=== PATIENT | male | born 1960 | race Caucasian/White ===

== ENCOUNTER 2020-11-28 23:40 | Observation (INO) | payer BC, OTHER ==
[2020-11-29 00:31] LABS: Protime INR 1.03
[2020-11-29 00:33] LABS: Absolute Lymphocytes (CBC) 2.3 K/uL (0.7-4.9); Basophils % 1.4 % (0-1.3); Hematocrit 41.5 % (39.6-49.0); MPV 7.5 fL (7.6-11.3); RBC Red Blood Cell Count 4.67 M/uL (4.33-5.43)
[2020-11-29 01:00] LABS: ALT/SGPT 29 U/L (12-78); AST/SGOT 23 U/L (15-37); Albumin 3.8 g/dL (3.4-5.0); Alkaline Phosphatase 41 U/L (45-117); BUN Blood Urea Nitrogen 17 mg/dL (7-18); Bicarbonate 27 mmol/L (21-32); Bilirubin Direct < 0.1 mg/dL (0-0.2); Bilirubin Total 0.3 mg/dL (0.2-1.0); Glucose Level 99 mg/dL (74-106); Magnesium 2.3 mg/dL (1.8-2.4); NT PRO-BNP 19 pg/mL (<125); Potassium 3.6 mmol/L (3.5-5.1); Protein, Total 7.6 g/dL (6.4-8.2); Sodium Level 142 mmol/L (136-145); Troponin (Emerg Dept Use Only) < 0.02 ng/mL (0.0-0.045)
[2020-11-29] MEDS ORDERED: ONDANSETRON 4 MG/2 ML VIAL ONE (01:42)
[2020-11-29] MEDS ORDERED: MORPHINE 4 MG/ML SYR ONE ×2 (01:42→04:52)
--- NOTE | 2020-11-29 04:39 | EDPHYS ---
Physician Documentation [facility] Name: Luciano Negron Age: 60 yrs Sex: Male : 1960 Arrival Date: 11/28/2020 Time: 23:41 Bed 4 Private MD: ED Physician Remy Porter HPI: 11/29 01:29 This 60 yrs old Male presents to ER via Ambulatory with complaints of Chest mh7 Pain, Shortness Of Breath. 01:30 The patient or guardian reports chest pain that is located primarily in the substernal mh7 area, epigastric area. Onset: today. The pain does not radiate. 01:30 Associated signs and symptoms: Pertinent positives: abdominal pain, nausea, shortness mh7 of breath, Pertinent negatives: cough, diaphoresis, dizziness, headache, lower extremity pain, lower extremity swelling, lightheadedness, near syncope, palpitations, recent travel, syncope, vomiting. The chest pain is described as a heaviness. Duration: The patient or guardian reports multiple episodes, that are intermittent, that wax and wane. Modifying factors: The symptoms are alleviated by nothing. the symptoms are aggravated by nothing. Severity of pain: At its worst the pain was moderate today, in the emergency department the pain is unchanged. Historical: - Allergies: 11/28 23:59 No Known Allergies; bb - Home Meds: 23:59 citalopram oral [Active]; Lisinopril Oral [Active]; testosterone [Active]; vitamins bb [Active]; - PMHx: 23:59 Hypertension; Anxiety; bb - PSHx: 23:59 Gastric Bypass; rotator cuff; Knee surgery; colonoscopies; bb - Immunization history:: Adult Immunizations unknown. - Social history:: Smoking status: Patient denies any tobacco usage or history of. Patient uses alcohol, occasionally. street drugs, marijuana. ROS: 11/29 01:30 Constitutional: Negative for fever, chills, and weight loss, Eyes: Negative for injury, mh7 pain, redness, and discharge, ENT: Negative for injury, pain, and discharge, Neck: Negative for injury, pain, and swelling, Back: Negative for injury and pain, : Negative for injury, bleeding, discharge, and swelling, MS/Extremity: Negative for injury and deformity, Skin: Negative for injury, rash, and discoloration, Neuro: Negative for headache, weakness, numbness, tingling, and seizure, Psych: Negative for depression, anxiety, suicide ideation, homicidal ideation, and hallucinations, Allergy/Immunology: Negative for hives, rash, and allergies, Endocrine: Negative for neck swelling, polydipsia, polyuria, polyphagia, and marked weight changes, Hematologic/Lymphatic: Negative for swollen nodes, abnormal bleeding, and unusual bruising. Exam: 01:30 Constitutional: This is a well developed, well nourished patient who is awake, alert, mh7 and in no acute distress. Head/Face: Normocephalic, atraumatic. Eyes: Pupils equal round and reactive to light, extra-ocular motions intact. Lids and lashes normal. Conjunctiva and sclera are non-icteric and not injected. Cornea within normal limits. Periorbital areas with no swelling, redness, or edema. Neck: Trachea midline, no thyromegaly or masses palpated, and no cervical lymphadenopathy. Supple, full range of motion without nuchal rigidity, or vertebral point tenderness. No Meningismus. Chest/axilla: Normal chest wall appearance and motion. Nontender with no deformity. No lesions are appreciated. Cardiovascular: Regular rate and rhythm with a normal S1 and S2. No gallops, murmurs, or rubs. Normal PMI, no JVD. No pulse deficits. Respiratory: Lungs have equal breath sounds bilaterally, clear to auscultation and percussion. No rales, rhonchi or wheezes noted. No increased work of breathing, no retractions or nasal flaring. 01:30 Back: No spinal tenderness. No costovertebral tenderness. Full range of motion. Skin: Warm, dry with normal turgor. Normal color with no rashes, no lesions, and no evidence of cellulitis. MS/ Extremity: Pulses equal, no cyanosis. Neurovascular intact. Full, normal range of motion. Neuro: Awake and alert, GCS 15, oriented to person, place, time, and situation. Cranial nerves II-XII grossly intact. Motor strength 5/5 in all extremities. Sensory grossly intact. Cerebellar exam normal. Normal gait. Psych: Awake, alert, with orientation to person, place and time. Behavior, mood, and affect are within normal limits. 01:30 Abdomen/GI: Inspection: abdomen appears normal, Bowel sounds: normal, in all quadrants, Palpation: mild abdominal tenderness, in the epigastric area, mass, is not appreciated, rebound tenderness, is not appreciated, voluntary guarding, is not appreciated, involuntary guarding, is not appreciated, no appreciated organomegaly, Rectal exam: the exam is deferred, because of patient request, Indicators: McBurney's point is not tender, Nichols's sign is negative, Rovsing's sign is negative, Obturator sign is negative, Psoas sign is negative, Liver: no appreciated palpable abnormalities, Hernia: not appreciated. Vital Signs: 11/28 23:55 BP 162 / 84; Pulse 68; Resp 16 S; Temp 98(O); Pulse Ox 97% on R/A; Weight 106.59 kg bb (R); Height 5 ft. 11 in. (180.34 cm) (R); Pain 8/10; 11/29 01:26 BP 151 / 82; Pulse 62; Resp 18; Pulse Ox 98% on R/A; ak2 05:04 BP 110 / 69; Pulse 64; Resp 20; Pulse Ox 95% on R/A; ak2 06:30 BP 116 / 72; Pulse 63; Resp 20; Pulse Ox 97% on R/A; ak2 11/28 23:55 Body Mass Index 32.78 (106.59 kg, 180.34 cm) bb MDM: 04:35 Differential diagnosis: acute myocardial infarction, acute pericarditis, anxiety, mh7 coronary artery disease chest wall pain, congestive heart failure Cholelithiasis costochondritis, gastritis, gastroesophageal reflux disease (GERD), myocarditis, pancreatitis, pericarditis, pleurisy, pneumonia, pneumothorax, pulmonary embolus. HEART Score: History: Highly Suspicious (2), ECG: Normal (0), Age: > 45 and < 65 years (1), Risk Factors: 1 or 2 risk factors (1), [Hypertension] [Active Smoker] Troponin: < or = 1 x Normal Limit (0), Total Score = 4. Data reviewed: vital signs, nurses notes, lab test result(s), cardiac enzymes, CBC, electrolytes, urinalysis, EKG, radiologic studies, CT scan, plain films. Data interpreted: Pulse oximetry: on room air is 98 %. Interpretation: normal. Counseling: I had a detailed discussion with the patient and/or guardian regarding: the historical points, exam findings, and any diagnostic results supporting the discharge/admit diagnosis, the presence of at least one elevated blood pressure reading (>120/80) during this emergency department visit, lab results, radiology results, the need for further work-up and treatment in the hospital. Response to treatment: the patient's symptoms have mildly improved after treatment. 04:38 Patient medically screened. [facility] 11/29 00:07 Order name: Basic Metabolic Panel; Complete Time: 01:10 11/29 00:07 Order name: CBC with Diff; Complete Time: 01:10 11/29 00:07 Order name: LFT's; Complete Time: :11/29 00:07 Order name: Magnesium; Complete Time: :10 11/29 00:07 Order name: NT PRO-BNP; Complete Time: 01:10 11/29 00:07 Order name: PT-INR; Complete Time: 01:10 11/29 00:07 Order name: Troponin (emerg Dept Use Only); Complete Time: 01:10 11/29 00:07 Order name: XRAY Chest (1 view) 11/29 00:34 Order name: Lipase; Complete Time: 01:10 11/29 00:34 Order name: ETOH Level; Complete Time: 01:10 11/29 01:20 Order name: CT Chest For PE Angio [facility] 11/29 01:20 Order name: CT Abd/Pelvis - IV Contrast Only [facility] 11/29 06:12 Order name: SARS-COV-2 RT PCR [facility] 11/29 00:07 Order name: EKG; Complete Time: 00:08 11/29 00:07 Order name: Cardiac monitoring; Complete Time: 04:46 11/29 00:07 Order name: EKG - Nurse/Tech; Complete Time: 00:07 11/29 00:07 Order name: IV Saline Lock; Complete Time: 00:07 11/29 00:07 Order name: Labs collected and sent; Complete Time: 00:07 11/29 00:07 Order name: O2 Per Protocol; Complete Time: 04:46 11/29 00:07 Order name: O2 Sat Monitoring; Complete Time: 04:46 11/29 04:28 Order name: CONS Physician Consult EDMS Administered Medications: 01:25 Drug: morphine 4 mg Route: IVP; Site: right antecubital; ak2 01:25 Drug: Zofran (Ondansetron) 4 mg Route: IVP; Site: right antecubital; ak2 04:38 Drug: morphine 4 mg {Note: RASS 1.} Route: IVP; Site: right antecubital; bb 04:45 Follow up: Response: No adverse reaction; Pain is decreased; RASS: Alert and Calm (0) ak2 04:45 Not Given (pt refused due to scheduled colonoscopy): Aspirin Chewable Tablet 324 mg PO bb once; 81 mg tablets x 4 Disposition: 11/29/20 04:38 Hospitalization ordered by Claritza Cordon for Observation. Preliminary diagnosis are Chest pain, unspecified, Upper abdominal pain, unspecified. - Bed requested for Telemetry/MedSurg (observation). - Status is Observation. jd3 - Condition is Stable. - Problem is new. - Symptoms have improved. Signatures: Dispatcher [employer] EDOR Irma Scherer RN RN mw Lissett Stokes RN RN Baljit Hernandez RN RN jRemy Moreno MD MD 7 Chip Andrews 3 Alphonso Zavala ma2 Corrections: (The following items were deleted from the chart) 05:14 04:31 CORONAVIRUS+ ordered. EDOR EDMS 06:23 04:38 Hospitalization Ordered by Claritza Cordon MD for Observation. Preliminary mw diagnosis is Chest pain, unspecified; Upper abdominal pain, unspecified. Bed requested for Telemetry/MedSurg (observation). Status is Observation. Condition is Stable. Problem is new. Symptoms have improved. mh7 07:13 06:23 11/29/2020 04:38 Hospitalization Ordered by Claritza Cordon MD for Observation. jd3 Preliminary diagnosis is Chest pain, unspecified; Upper abdominal pain, unspecified. Bed requested for Telemetry/MedSurg (observation). Status is Observation. Condition is Stable. Problem is new. Symptoms have improved. mw
--- NOTE | 2020-11-29 04:39 | ER ---
Nurse's Notes [facility] Name: Luciano Negron Age: 60 yrs Sex: Male : 1960 Arrival Date: 11/28/2020 Time: 23:41 Bed 4 Private MD: Diagnosis: Chest pain, unspecified;Upper abdominal pain, unspecified Presentation: 11/28 23:55 Chief complaint: Patient states: he has been having chest pain for about an hour, pain bb does not radiate, and is constant pain is from bottom of sternum to throat. Coronavirus screen: At this time, the client does not indicate any symptoms associated with coronavirus-19. Ebola Screen: No symptoms or risks identified at this time. Initial Sepsis Screen: Does the patient meet any 2 criteria? No. Patient's initial sepsis screen is negative. Does the patient have a suspected source of infection? No. Patient's initial sepsis screen is negative. Risk Assessment: Do you want to hurt yourself or someone else? Patient reports no desire to harm self or others. Onset of symptoms was November 28, 2020. 23:55 Method Of Arrival: Ambulatory bb 23:55 Acuity: PAUL 3 bb Triage Assessment: 11/29 00:26 General: Appears in no apparent distress. Behavior is calm, cooperative. Pain: ak2 Complains of pain in chest. Cardiovascular: No deficits noted. Historical: - Allergies: 11/28 23:59 No Known Allergies; bb - Home Meds: 23:59 citalopram oral [Active]; Lisinopril Oral [Active]; testosterone [Active]; vitamins bb [Active]; - PMHx: 23:59 Hypertension; Anxiety; bb - PSHx: 23:59 Gastric Bypass; rotator cuff; Knee surgery; colonoscopies; bb - Immunization history:: Adult Immunizations unknown. - Social history:: Smoking status: Patient denies any tobacco usage or history of. Patient uses alcohol, occasionally. street drugs, marijuana. Screenin/19 00:25 Abuse screen: Denies threats or abuse. Denies injuries from another. Nutritional ak2 screening: No deficits noted. Tuberculosis screening: No symptoms or risk factors identified. Fall Risk None identified. Assessment: 00:26 Pain: Pain does not radiate. Pain began 1 hour ago. ak2 06:40 General: report called to rn. de la garza2 Vital Signs: 11/28 23:55 BP 162 / 84; Pulse 68; Resp 16 S; Temp 98(O); Pulse Ox 97% on R/A; Weight 106.59 kg bb (R); Height 5 ft. 11 in. (180.34 cm) (R); Pain 8/10; 11/29 01:26 BP 151 / 82; Pulse 62; Resp 18; Pulse Ox 98% on R/A; ak2 05:04 BP 110 / 69; Pulse 64; Resp 20; Pulse Ox 95% on R/A; ak2 06:30 BP 116 / 72; Pulse 63; Resp 20; Pulse Ox 97% on R/A; ak2 11/28 23:55 Body Mass Index 32.78 (106.59 kg, 180.34 cm) bb ED Course: 11/28 23:41 Patient arrived in ED. cf2 23:52 Remy Porter MD is Attending Physician. mh7 23:54 EKG done, by ED staff, reviewed by Remy Porter MD. tt3 23:57 Triage completed. bb 23:59 Arm band placed on Patient placed in an exam room, on a stretcher, on integrated logistics support manager, bb on pulse oximetry. EKG completed in triage. Results shown to MD. Family accompanied patient. 11/29 00:06 Initial lab(s) drawn, by me, sent to lab. Inserted saline lock: 20 gauge in right tt3 antecubital area, using aseptic technique. 00:18 Alphonso Zavala is Primary Nurse. ak2 00:20 XRAY Chest (1 view) In Process Unspecified. EDMS 00:25 No provider procedures requiring assistance completed. ak2 00:25 Patient has correct armband on for positive identification. school bus monitor on. Pulse ak2 ox on. NIBP on. 00:26 Patient maintains SpO2 saturation greater than 95% on room air. ak2 02:00 CT Chest For PE Angio In Process Unspecified. EDMS 02:00 CT Abd/Pelvis - IV Contrast Only In Process Unspecified. EDMS 04:37 Claritza Cordon MD is Hospitalizing Provider. mh7 Administered Medications: 01:25 Drug: morphine 4 mg Route: IVP; Site: right antecubital; ak2 01:25 Drug: Zofran (Ondansetron) 4 mg Route: IVP; Site: right antecubital; ak2 04:38 Drug: morphine 4 mg {Note: RASS 1.} Route: IVP; Site: right antecubital; bb 04:45 Follow up: Response: No adverse reaction; Pain is decreased; RASS: Alert and Calm (0) ak2 04:45 Not Given (pt refused due to scheduled colonoscopy): Aspirin Chewable Tablet 324 mg PO bb once; 81 mg tablets x 4 Outcome: 04:38 Decision to Hospitalize by Provider. [facility] 06:40 Admitted to Tele ak2 06:40 Condition: good 07:13 Patient left the ED. jd3 Signatures: Dispatcher [employer] EDMS Lissett Stokes RN RN Baljit Hernandez RN RN jd3 Godfrey Moraes 2 Remy Porter MD MD [facility] Chip Andrews 3 Alphonso Zavala [facility] Corrections: (The following items were deleted from the chart) 04:44 04:39 Aspirin Chewable Tablet 324 mg PO bb bb
[2020-11-29] MEDS ORDERED: ASPIRIN 81 MG CHEWABLE TABLET ONE (05:01)
--- NOTE | 2020-11-29 05:04 | P.HP ---
Certification for Inpatient Patient admitted to: Observation With expected LOS: <2 Midnights Patient will require the following post-hospital care: None Practitioner: I am a practitioner with admitting privileges, knowledge of patient current condition, hospital course, and medical plan of care. Services: Services provided to patient in accordance with Admission requirements found in Title 42 Section 412.3 of the Code of Federal Regulations Patient History Date of Service: 11/29/20 Primary Care Provider: Susie Reason for admission: ACS r/o History of Present Illness: Mr. Negron is a 60 yo M with HTN who presents with 8/10 epigastric/sternal pain beginning yesterday at 10pm while he was watching TV. He describes the pain as squeezing and initially thought it was indigestion but it was not relieved with omeprazole. Pain prevented him from sleeping. Reports SOB. Denies nausea, vomiting, diaphoresis, lightheadedness. Worse with deep breaths, improved with laying down. He is scheduled to see cardiology in December for palpitations he has been having. Last stress test was ~25 years ago. He quit chewing tobacco in August. Family history of stroke, DM, HTN. Initial workup wnl. - Past Medical/Surgical History Diabetic: No -: HTN -: anxiety -: gastric sleeve -: rotator cuff repair -: knee surgery Psychosocial/ Personal History: - Family History Mother -: Hypertension Father -: Stroke Brother -: Diabetes, Stroke Sister -: Lung disease - Social History Smoking Status: Former smoker (chewed tobacco) Alcohol use: Yes CD- Drugs: No Caffeine use: Yes Place of Residence: Home Review of Systems 10-point ROS is otherwise unremarkable Respiratory: Shortness of Breath Cardiovascular: Chest Pain, Palpitations Physical Examination - Physical Exam General: Alert, In no apparent distress HEENT: Atraumatic, PERRLA, Mucous membr. moist/pink, EOMI, Sclerae nonicteric Neck: Supple, 2+ carotid pulse no bruit, No LAD, Without JVD or thyroid abnormality Respiratory: Clear to auscultation bilaterally, Normal air movement Cardiovascular: Regular rate/rhythm, Normal S1 S2 Gastrointestinal: Normal bowel sounds, No tenderness Musculoskeletal: No tenderness Integumentary: No rashes Neurological: Normal gait, Normal speech, Normal strength at 5/5 x4 extr, Normal tone, Normal affect Lymphatics: No axilla or inguinal lymphadenopathy - Studies Laboratory Data (last 24 hrs) 11/29/20 00:03: Lipase 206 11/29/20 00:03: PT 11.9, INR 1.03 11/29/20 00:03: WBC 7.60, Hgb 13.8, Hct 41.5, Plt Count 252 11/29/20 00:03: Sodium 142, Potassium 3.6, BUN 17, Creatinine 0.81, Glucose 99, Magnesium 2.3, Total Bilirubin 0.3, AST 23, ALT 29, Alkaline Phosphatase 41 L Assessment and Plan - Problems (Diagnosis) (1) HTN (hypertension) Current Visit: Yes Status: Chronic Qualifiers: Hypertension type: essential hypertension Qualified Code(s): I10 - Essential (primary) hypertension (2) Anxiety Current Visit: Yes Status: Chronic (3) Chest pain Current Visit: Yes Status: Acute Qualifiers: Chest pain type: unspecified Qualified Code(s): R07.9 - Chest pain, unspecified - Plan cardiology consulted on telemetry, repeat EKG in AM, trend troponins daily ASA and statin, PRN morphine and NTG lipid panel, thyroid panel pending BP stable, reconcile and continue home medications DVT ppx Discharge Plan: Home Plan to discharge in: 24 Hours - Advance Directives Does patient have a Living Will: No Does patient have a Durable POA for Healthcare: No - Code Status/Comfort Care Code Status Assessed: Yes (full code ) Critical Care: No Time Spent Managing Pts Care (In Minutes): 70
[2020-11-29] MEDS ORDERED: PANTOPRAZOLE 40MG TABLET PO SCH (08:01)
[2020-11-29] MEDS ORDERED: MORPHINE 2 MG/ML SYR IV PRN (08:01)
[2020-11-29] MEDS ORDERED: NITROGLYCERIN 0.4 MG/TAB SL PRN (08:01)
[2020-11-29] MEDS ORDERED: ACETAMINOPHEN 500 MG TAB PO PRN (08:01)
[2020-11-29] MEDS ORDERED: ONDANSETRON 4 MG/2 ML VIAL IV PRN (08:01)
[2020-11-29] MEDS ORDERED: lisinopriL 20 MG TAB PO SCH (09:00)
[2020-11-29] MEDS ORDERED: ASPIRIN EC 81 MG TAB PO SCH (09:00)
[2020-11-29] MEDS ORDERED: ENOXAPARIN 40 MG/0.4 ML SQ SCH (09:00)
[2020-11-29 09:22] LABS: HDL Cholesterol 51 mg/dL (40-60); LDL Cholesterol, Calculated 99 (<130); NT PRO-BNP 35 pg/mL (<125); Troponin I < 0.02 ng/mL (0.0-0.045)
--- NOTE | 2020-11-29 09:44 | EKG ---
Test Date: 2020-11-28 Test Time: 23:49:15 [employer]indergarten Classroom Teacher: TLT MEASUREMENT RESULTS: Intervals: Rate: 68 MN: 182 QRSD: 86 QT: 442 QTc: 469 Willard: P: 13 MN: 182 QRS: -18 T: 20 INTERPRETIVE STATEMENTS: Normal sinus rhythm Normal ECG Compared to ECG 05/28/2002 11:48:00 No significant changes Electronically Signed On 11-29-20 09:43:30 CDT by Omid Munroe
--- NOTE | 2020-11-29 10:58 | RAD REPORT ---
EXAM DESCRIPTION: Madeline Single View11/29/2020 12:21 am CLINICAL HISTORY: Chest pain COMPARISON: none FINDINGS: The lungs appear clear of acute infiltrate. The heart is normal size. Calcified lung granulomas are seen. IMPRESSION: No acute abnormalities displayed
[2020-11-29 11:15] VITALS: BMI 32.9
--- NOTE | 2020-11-29 11:17 | RAD REPORT ---
EXAM DESCRIPTION: US - Abdomen Exam Limited - 11/29/2020 10:51 am CLINICAL HISTORY: Abdominal pain. FINDINGS: A trace amount of pericholecystic fluid. The gallbladder wall is mildly thickened. A galls tone is not seen. Gallbladder is mildly distended The biliary tree is normal caliber. IMPRESSION: Trace amount of pericholecystic fluid. Mild gallbladder wall thickening may indicate ac alculus cholecystitis and should be correlated clinically Mild gallbladder distention
--- NOTE | 2020-11-29 11:19 | CON ---
Reason For Consultation: Atypical chest pain, palpitation, and shortness of breath. History Of Present Illness: Mr. Negron is a 60-year-old white male. Has a history of hypertension, gastroesophageal reflux disease, anxiety. Came in with mid-epigastric sharp, stabbing chest pain wit hout any nausea, vomiting, or diaphoresis. He denied any PND, orthopnea, pedal edema. Has had some palpitations intermittently for which he was going to see Dr. Thomas, but he did not have any palpitat ion with this chest pain. He had some shortness of breath in the past with this palpitation. He den ied any fever or chills or cough. His symptoms did not get better with routine gastroesophageal refl ux medicine including omeprazole and he decided to come to the emergency room. He was slightly hyper tensive, but he had a normal EKG, normal x-ray, and normal blood work. CT scan of the abdomen showed possible gallbladder issue and ultrasound of his abdomen is pending. He has a colonoscopy by Dr. Carmenza hamlin next week. Past Medical History: As stated above. Allergies: NONE. Family History: Strongly positive for heart disease, stroke, and diabetes. Medications: At home include Zestril and Celexa and occasional testosterone. Review of Systems: Negative. Social History: Positive for rare alcohol. He just recently quit chewing tobacco. Physical Examination: Vital Signs: When I saw him; his vital signs were stable. He was afebrile, in no acute distress, si nus rhythm. HEENT: Negative. Neck: Supple with no bruit. Chest: Clear. Cardiac: Revealed a regular rhythm and rate. No murmurs, gallops, or rubs. Abdomen: Benign. Extremities: Revealed no clubbing, cyanosis, or edema. Diagnostic Data: As stated earlier. Impression And Plan: 1.Atypical chest pain, more likely related to gastrointestinal issues such that the gallbladder work up for that is pending. 2.Palpitations. 3.Shortness of breath. 4.Hypertension. 5.Anxiety. 6.Gastroesophageal reflux disease. 7.Strong family history of heart disease. 8.History of tobacco use in the past that he has quit. I am very comfortable Mr. Negron going home after his GI workup. I will clear him for colonoscopy for Tuesday by Dr. Webber and office will call on Tuesday and have him set up for an echocardiogram, event monitor and an MPI and I will see him karlee phoebe. He can go home whenever it is okay with Dr. Cordon. RADHA/LUIS Voice ID: [id number] Report ID: [id number]
[2020-11-29] MEDS ORDERED: PIPER/TAZO/NS 3.375gm 3.375 GM/100 ML BAG IVPB SCH (12:31)
[2020-11-29 13:27] VITALS: O2SAT 98
[2020-11-29 15:23] VITALS: BP 146/67; TEMP 97.5
[2020-11-29] MEDS ORDERED: ATORVASTATIN 20 MG TAB PO SCH (21:00)
--- NOTE | 2020-11-30 21:49 | RAD REPORT ---
EXAM DESCRIPTION: CT - Chest For Pe Angio - 11/29/2020 6:22 am CLINICAL HISTORY: CHEST PAIN COMPARISON: None Available TECHNIQUE: Multiple helical axial tomographic images were obtained of the chest following administra tion of intravenous contrast per angiographic protocol. MIP reformatted images were obtained. This exam was performed according to our departmental dose-optimization program, which includes autom ated exposure control, adjustment of the mA and/or kV according to patient size and/or use of iterati ve reconstruction technique. FINDINGS: Thyroid gland: unremarkable. Axilla: unremarkable. Pulmonary arteries: Pulmonary arteries appear patent. No evidence of pulmonary embolism. Aorta: No evidence of aortic dissection or aneurysm. Mediastinum: Unremarkable. No adenopathy. Heart: Heart is normal in size. Lungs/airways: No consolidation. Airways are patent. There is a 5 mm subpleural nodule in the lingula (series 401, image 71). Two adjacent calcified granulomas in the left lower lobe are present. Pleural spaces: No significant pleural effusion. No pneumothorax. Osseous: Degenerative changes of the spine noted. Soft tissues: Unremarkable. Visualized abdomen: Postoperative changes of the stomach noted. Calcified splenic granulomas are pres ent. IMPRESSION: 1. No acute intrathoracic abnormality. 2. 5 mm subpleural nodule in the lingula. No routine follow-up imaging is recommended. These guidelin es do not apply to immunocompromised patients and patients with cancer. Follow up in patients with si gnificant comorbidities as clinically warranted. For lung cancer screening, adhere to Lung-RADS guide lines. Reference: Radiology. 2017; 284(1):228-43. Electronically signed by: Dre Stanley MD 11/29/2020 2:48 AM CDT Due to temporary technical issues with the PACS/Fluency reporting system, reports are being signed by the in house radiologists without review as a courtesy to insure prompt reporting. The interpreting radiologist is fully responsible for the content of the report.
--- NOTE | 2020-11-30 21:52 | RAD REPORT ---
EXAM DESCRIPTION: CT - Abdomen Pelvis W Contrast - 11/29/2020 6:22 am CLINICAL HISTORY: ABD PAIN TECHNIQUE: Contiguous axial images obtained through the abdomen and pelvis following the uneventful administration of IV contrast. Coronal and sagittal reformatted images were provided. This exam was performed according to our departmental dose-optimization program, which includes autom ated exposure control, adjustment of the mA and/or kV according to patient size and/or use of iterati ve reconstruction technique. COMPARISON: None available for comparison. FINDINGS: Lung bases: Left lower lobe calcified granuloma. Calcified left hilar lymph nodes. Liver: Unremarkable Gallbladder and biliary system: No calcified gallstones or significant gallbladder wall thickening. Q uestionable trace pericholecystic fluid and minimal infiltration of the fat. Pancreas: Unremarkable Spleen: Splenic parenchymal calcifications compatible with remote granulomatous organism exposure. Adrenals: Unremarkable Kidneys: Normal renal cortical enhancement. 1.3 cm cyst at the mid pole on the right. No calculi. No hydronephrosis. Bowel: Postsurgical changes of the stomach. Intramural fat within the right abdominal small bowel loo ps which can be seen in the setting of prior inflammation. Colonic diverticula without adjacent infla mmatory change. No obstruction. No appreciable mucosal thickening. Appendix: Normal caliber appendix. No findings to suggest acute appendicitis. Urinary bladder: Mild circumferential urinary bladder wall thickening. Reproductive: Unremarkable as visualized Lymph nodes: No pathologically enlarged lymph nodes. Peritoneum: No focal fluid collection. No free air. Vessels: Mild to moderate atherosclerotic disease. No abdominal aortic aneurysm. Abdominal wall: Small fat-containing umbilical and bilateral inguinal hernias. Bones: Multilevel spondylosis. Remote anterior compression deformities at T9, T10 and T11. No acute f racture. IMPRESSION: 1. Questionable trace pericholecystic fluid and minimal infiltration of the fat. No ca lcified gallstones or significant gallbladder wall thickening. Please correlate clinically for acute cholecystitis. 2. Mild circumferential urinary bladder wall thickening. Please correlate clinically for cystitis. 3. Other findings as above. Electronically signed by: Kev Stallings MD 11/29/2020 2:20 AM CDT Due to temporary technical issues with the PACS/Fluency reporting system, reports are being signed by the in house radiologists without review as a courtesy to insure prompt reporting. The interpreting radiologist is fully responsible for the content of the report.
== END 2020-11-29 15:59 | disposition home or self-care (01) ==
LOC: ER 23:40 → 2ND 11-29 04:27 → INTOOBSV 11-29 04:27
PROVIDERS: ADMIT Hospitalist; ATTEND Hospitalist
DX: R07.89 Other chest pain (principal); R00.2 Palpitations; R06.02 Shortness of breath; Z87.891 Personal history of nicotine dependence; Z20.822 Contact with and (suspected) exposure to COVID-19; I10 Essential (primary) hypertension; F41.9 Anxiety disorder, unspecified; K21.9 Gastro-esophageal reflux disease without esophagitis; Z82.49 Family history of ischemic heart disease and other diseases of the circulatory system; Z98.84 Bariatric surgery status
CPT/HCPCS: 93005; 85025; 80048; 36415; 80320; 83735; 85610; 80061; 80076; 84443; 84484 ×3; 84439; 83690; 83880 ×2; 71275; 74177; 71045; 76705; 94760; U0003; Q9967; J2543; J2405; G0378 ×2; 96374; 96375; 99285

== ENCOUNTER 2020-12-08 07:54 | Day surgery (SDC) | payer OTHER ==
[2020-12-05 14:10] LABS: Absolute Lymphocytes (CBC) 1.6 K/uL (0.7-4.9); Basophils % 0.9 % (0-1.3); Hematocrit 39.2 % (39.6-49.0); Lymphocytes % 18.3 % (15.3-44.8); MPV 7.3 fL (7.6-11.3); RBC Red Blood Cell Count 4.47 M/uL (4.33-5.43)
[2020-12-05 14:44] LABS: Albumin 3.9 g/dL (3.4-5.0); Bilirubin Direct 0.1 mg/dL (0-0.2); Bilirubin Total 0.4 mg/dL (0.2-1.0); Potassium 4.3 mmol/L (3.5-5.1); Protein, Total 8.2 g/dL (6.4-8.2)
[2020-12-08] MEDS ORDERED: Ringers Lactate 1,000 ML IV ONE ×2 (08:28)
[2020-12-08] MEDS ORDERED: CEFOXITIN/SWI 1gm 1 GM/10 ML SYR ONE ×2 (08:28→08:56)
[2020-12-08] MEDS ORDERED: MIDAZOLAM HCL 2 MG/2 ML INJ ONE (09:18)
[2020-12-08] MEDS ORDERED: ROCURONIUM 50 MG/5 ML VIAL IV ONE (09:18)
[2020-12-08] MEDS ORDERED: propofoL 200 MG/20 ML VIAL IV ONE (09:18)
[2020-12-08] MEDS ORDERED: FENTANYL CITR 100 MCG/2 ML ONE (09:18)
[2020-12-08] MEDS ORDERED: LIDOCAINE 2% MPF 5 ML VIAL ONE (09:18)
[2020-12-08] MEDS ORDERED: ONDANSETRON 4 MG/2 ML VIAL ONE (09:19)
[2020-12-08] MEDS ORDERED: dexAMETHasone 10 MG/ML VIAL ONE (09:19)
[2020-12-08] MEDS ORDERED: GLYCOPYRROLATE 0.2 MG/ML SYR ONE (09:58)
[2020-12-08] MEDS ORDERED: EPHEDRINE SULF 50 MG/ML VIAL ONE (10:06)
[2020-12-08] MEDS ORDERED: KETOROLAC 30 MG/ML INJ ONE (10:51)
--- NOTE | 2020-12-08 10:55 | P.BOP ---
Preoperative diagnosis: Acute cholecystitis, Symptomatic cholelithiasis Postoperative diagnosis: same plus umbilical hernia Primary procedure: 1. Laparoscopic cholecystectomy Secondary procedure: 2. Open repair of umbilical hernia Nitriles Lab Technician: Joan Ponce) Estimated blood loss: <20cc Specimen: GB, hernia sac Findings: acute inflammed GB. hernia Anesthesia: General Complications: None Drain(s): AURY drain Transferred to: Recovery Room Condition: Good
[2020-12-08] MEDS ORDERED: MORPHINE 10 MG/ML VIAL ONE (11:03)
[2020-12-08 12:23] VITALS: BP 119/63; TEMP 97.3; O2SAT 97
[2020-12-08] MEDS ORDERED: CODEINE 30MG/APAP 300MG TAB ONE (12:35)
--- NOTE | 2020-12-08 22:24 | OP ---
Date of Procedure: 12/08/2020 Surgeon: Alonso Patiño MD Digital Analyst: MARIELLA Huffman. Preoperative Diagnoses: Acute cholecystitis, symptomatic cholelithiasis intractable, and recurrent r ight upper quadrant abdominal pain. Postoperative Diagnoses: Acute cholecystitis, symptomatic cholelithiasis intractable, and recurrent right upper quadrant abdominal pain plus umbilical hernia. Procedures: 1.Laparoscopic cholecystectomy. 2.Open repair of umbilical hernia. Estimated Blood Loss: Less than 20 cc. Specimen: Gallbladder and hernia sac. Finding: Acute inflamed gallbladder and also umbilical hernia. Anesthesia: General plus local. Drains: AURY #10. Indications: This is the case of a 60-year-old patient who comes to us with abdominal pain, diagnose d with acute cholecystitis. The patient's pain is recurrent. Shows gallbladder wall inflammation. The patient was fully explained the benefits, alternatives, and risks of laparoscopic possible open c holecystectomy, which include, but not limited to infection, bleeding, damage to adjacent structures, anesthesia complication, cholelithiasis, bile leak, pancreatitis, VA and even . He also unders tands this may not relieve his symptoms. He might need more than one surgical intervention. He unde rstood, signed a consent. Procedure In Detail: The patient was brought to the operating room, placed in supine position. Anes thesia was done without complication. Abdominal area was prepped and draped in usual sterile fashion . Marcaine 0.5% was injected for local anesthetic, followed by sharp incision of the skin in the inf raumbilical region. Once we did that, we noticed the patient to have an umbilical hernia with incarc erated omentum on it, so we proceeded to carefully removed the hernia sac, opened the hernia sac rohini ving some adhesions up to the hernia sac and then reduced the omentum back since it is viable and lyubov e. No bleeding. Hernia sac was removed. At that moment, I proceeded to place Vicryl #1 inside of t he fascia. Dinah trocar was carefully introduced. No bleeding was obtained. I placed 3 more troca rs 5 mm each one of them, in epigastric area, 2 in the right upper quadrant under direct visualizatio n. This allowed me to put a grasper in the fundus of the gallbladder, another grasper in the infundi bulum. This gallbladder was distended and inflamed. We could also see some stones through the gallb ladder wall and feel it. At that moment once we retracted gallbladder in the inferolateral fashion, we proceeded to triangle of Calot to obtain critical view. Cystic duct and cystic artery were clearl y isolated, freed circumferentially, and a connection between those and the gallbladder were clearly identified. I proceeded to ligate those by using at least 3 clips proximally, 1 clip distally, ligat ion in middle. Same was done with the cystic artery. No bile leak. No bleeding. The gallbladder w as removed from liver using Bovie cauterizer and removed from abdominal cavity using EndoCatch throug h umbilical incision. The area was inspected once again. No bile leak. No bleeding, but there was an infection in that area. I felt better leaving a AURY drain in that region and exiting through 1 of the trocar site and that is what we did and secured in place with 3-0 nylon. Once again, we checked the area for hemostasis. No bile leak. No bleeding. At that moment, I proceeded to remove the troc ars under direct vision, deflated pneumoperitoneum. Closed the fascia with #1 Vicryl. Irrigated sub cutaneous tissue, closed that with 3-0 chromic and skin in a subcuticular fashion. Sponge counts and instrument counts were correct. The patient tolerated the procedure well. Also I have to mention t hat on the way out, we closed the umbilical hernia with #1 Vicryl. The patient was sent to Recovery in stable condition. Discharge Summary: Diagnoses: Acute cholecystitis, symptomatic cholelithiasis, umbilical hernia. Procedure: Laparoscopic cholecystectomy and open repair of umbilical hernia. Disposition: Home. Activity: As tolerated. No heavy lifting. Followup: In my office in one week. Call for appointment at #[phone]. Keep area dry for 48 hours, then may shower. Keep Steri-Strip intact. Medications: Include Tylenol No. 3 q.4 hours p.r.n. pain, Bactrim DS p.o. b.i.d. EDY/LUIS Voice ID: [id number] Report ID: [id number]
== END 2020-12-08 12:57 | disposition home or self-care (01) ==
LOC: OR 07:54
PROVIDERS: ATTEND Surgery
PROC: 0FT44ZZ Resection of Gallbladder, Percutaneous Endoscopic Approach (ICD-10-PCS; principal; 2020-12-08 09:30)
PROC: 0WQF0ZZ Repair Abdominal Wall, Open Approach (ICD-10-PCS; 2020-12-08 09:30)
DX: K80.12 Calculus of gallbladder with acute and chronic cholecystitis without obstruction (principal); K42.9 Umbilical hernia without obstruction or gangrene; I10 Essential (primary) hypertension; F41.9 Anxiety disorder, unspecified; R10.9 Unspecified abdominal pain
CPT/HCPCS: 85025; 80048; 36415; 82150; 80076; 88302; 88304; 83690; 47562; 49585; J2704; J2250; J3010; J1100; J7120 ×2; J2405

== ENCOUNTER 2025-04-04 09:56 | Emergency (ER) | payer OTHER ==
[2025-04-04] MEDS ORDERED: FOLIC ACID 5 MG/ML VIAL ONE (10:18)
[2025-04-04] MEDS ORDERED: NA CHLORIDE 0.9% 1,000 ML ONE (10:19)
[2025-04-04 10:25] LABS: Absolute Lymphocytes (CBC) 1.5 K/uL (0.7-4.9); Hematocrit 47.0 % (39.6-49.0); Hemoglobin 15.8 g/dL (13.6-17.9); MCH 30.0 pg (27.0-35.0); MCHC 33.6 g/dL (32.0-36.0); MCV 89.4 fL (80-100); MPV 7.1 fL (7.6-11.3); Nucleated RBC Absolute Count 0.0 (0-0); Nucleated Red Blood Cells % 0.0 % (0-0); RBC Red Blood Cell Count 5.26 M/uL (4.33-5.43); White Blood Count 11.10 thou/uL (4.3-10.9)
--- NOTE | 2025-04-04 10:31 | RAD REPORT ---
EXAM: CT brain without contrast HISTORY: Visual disturbances;TIA COMPARISON: None TECHNIQUE: Multiple contiguous axial images were obtained and a CT of the brain without contrast. Sag ittal and coronal reformats were performed. One or more of the following dose reduction techniques were used: Automated exposure control, adjust ment of the mA and/or kV according to patient size, and/or iterative reconstruction. FINDINGS: No evidence of hydrocephalus, intracranial hemorrhage, or extra-axial fluid collection. The brain is normal in morphology. No evidence of midline shift or areas of brain edema. The calvarium is intact. Mild polypoid mucosal thickening noted in the paranasal sinuses. IMPRESSION: No evidence of acute intracranial abnormality.
--- NOTE | 2025-04-04 10:33 | RAD REPORT ---
EXAMINATION: CTA HEAD CLINICAL INDICATION: TIA TECHNIQUE: Axial CT images were obtained through the head after intravenous contrast utilizing angiog raphic protocol with 3D post-processing (maximum intensity projection images, volume rendered images and/or shaded surface rendered images). One or more of the following dose reduction technique s were used: Automated exposure control, adjustment of the mA and/or kV according to patient size, and/or iterative reconstruction. Unless otherwise specified, incidental findings do not require dedic ated imaging follow-up. COMPARISON: No prior exam. FINDINGS: ICA: The petrous, cavernous, and supraclinoid segments of the bilateral internal carotid arteries are normal. The ophthalmic artery origins are visualized and normal. The posterior communicating arteries are patent. RALPH: Anterior cerebral arteries are normal bilaterally. The anterior communicating artery is patent. MCA: Middle cerebral arteries are normal bilaterally. COATER SLATE: Posterior cerebral arteries are normal bilaterally. origin right posterior communicating a rtery, normal variant anatomy. Vertebrobasilar: The vertebral arteries are patent. The basilar artery is normal in appearance. 3D images confirm these findings. IMPRESSION: No significant flow abnormality is identified.
--- NOTE | 2025-04-04 10:37 | RAD REPORT ---
EXAMINATION: CTA NECK CLINICAL INDICATION: PAIN TECHNIQUE: Axial CT images were obtained from the aortic arch to the skull base after intravenous con trast utilizing angiographic protocol with 3D post-processing (maximum intensity projection images, volume rendered images and/or shaded surface rendered images). One or more of the following dose redu ction techniques were used: Automated exposure control, adjustment of the mA and/or kV according to patient size, and/or iterative reconstruction. Unless otherwise specified, incidental findings do not require dedicated imaging follow-up. COMPARISON: No prior exam. FINDINGS: AORTA: The imaged aortic arch is normal. CCA: The common carotid arteries are patent and normal in caliber. ICA/ECA: Moderate hard plaquing is seen involving both carotid bulbs, slightly greater on the left. S tenosis on the right is less than 50%. Stenosis on the left is approximately 40-50%. VERTEBRAL: The cervical vertebral arteries are patent. The vertebral arteries are codominant. SOFT TISSUE: No significant neck soft tissue abnormalities. The visualized lung apices are clear. 3D images confirm these findings. IMPRESSION: Moderate hard plaque seen in both carotid bulbs, greater on the left, resulting in [id number] s tenosis as detailed. NASCET criteria used. Mild 0-49% stenosis Moderate 50-69% stenosis Severe 70-99% stenosis
[2025-04-04 10:47] LABS: PT Prothrombin Time 13.4 SECONDS (10-13.0); Protime INR 1.19
[2025-04-04 10:52] LABS: ALT/SGPT 41 U/L (16-61); AST/SGOT 35 U/L (15-37); Albumin 3.9 g/dL (3.4-5.0); Albumin/Globulin Ratio 0.9 (1.1-1.8); Alkaline Phosphatase 48 U/L (45-117); Anion Gap 11.8 mEq/L (5.0-15.0); BUN Blood Urea Nitrogen 16 mg/dL (7-18); Bilirubin Indirect, Calculated 0.6 mg/dL (0.2-0.8); C-Reactive Protein < 2.90 mg/L (<3.00); Globulin 4.3 g/dL (2.3-3.5); Glucose Level 134 mg/dL (74-106); HDL Cholesterol 54 mg/dL (40-60); LDL Cholesterol, Calculated 41 mg/dL (<130); LDL Cholesterol,Calc NonReport 41; Magnesium 1.5 mg/dL (1.6-2.4); NT PRO-BNP 8 pg/mL (<125); Potassium 3.8 mEq/L (3.5-5.1); Troponin High Sensitivity 4.5 pg/mL (<58.9)
--- NOTE | 2025-04-04 10:59 | RAD REPORT ---
EXAMINATION: MRI BRAIN WITHOUT CONTRAST CLINICAL INDICATION: TIA TECHNIQUE: Multiplanar multisequence MR images of the brain were obtained without intravenous contras t. Unless otherwise specified, incidental findings do not require dedicated imaging follow-up. COMPARISON: No prior exam. FINDINGS: INTRACRANIAL: Diffusion-weighted images show no acute or early subacute infarction. No abnormal brain parenchymal signal. The ventricles are normal in size and morphology. No augmented susceptibility. There is no mass effect or midline shift. No abnormal extraaxial fluid collection. VASCULATURE: Normal signal voids in the larger intracranial arteries and dural venous sinuses. SINUSES: Moderate multifocal paranasal sinus opacification. BONE: The marrow signal pattern is within normal limits. IMPRESSION: Negative for acute CVA or other acute intracranial finding. Moderate paranasal sinus opacification.
--- NOTE | 2025-04-04 11:16 | RAD REPORT ---
EXAMINATION: ONE VIEW CHEST XR CLINICAL INDICATION: COUGH TECHNIQUE: Frontal chest projection is submitted. Examination is limited by patient positioning and t echnique. COMPARISON: 11/29/2020 FINDINGS: The lungs are well inflated and clear. The heart is normal in size. No displaced fractures identified . IMPRESSION: No acute intrathoracic abnormalities.
[2025-04-04] MEDS ORDERED: ASPIRIN 81 MG CHEWABLE TABLET ONE (11:43)
[2025-04-04] MEDS ORDERED: Magnesium Sulfate 2gm IVPB 2 G/50 ML BAG IV ONE (11:43)
--- NOTE | 2025-04-04 12:32 | ER ---
Nurse's Notes [facility] Name: Luciano Negron Age: 65 yrs Sex: Male : 1960 Arrival Date: 04/04/2025 Time: 09:56 Bed 4 Private MD: Diagnosis: Syncope Near;Occlusion and stenosis of unspecified carotid artery-LESS THAN 50%;Essential (primary) hypertension;Hypomagnesemia Presentation: 04/04 10:13 Chief complaint: Patient states: Two days ago patient's vision changed where everything me1 he saw was green, then everything was "bright white" and he lost complete consciousness. Friends reports it lasted 4-5 minutes. Coronavirus screen: Vaccine status: Patient reports receiving the 2nd dose of the covid vaccine. Ebola Screen: No symptoms or risks identified at this time. Initial Sepsis Screen: Does the patient meet any 2 criteria? No. Patient's initial sepsis screen is negative. Does the patient have a suspected source of infection? No. Patient's initial sepsis screen is negative. Risk Assessment: Do you want to hurt yourself or someone else? Patient reports no desire to harm self or others. Onset of symptoms was April 02, 2025. 10:13 Method Of Arrival: Ambulatory me1 10:13 Acuity: PAUL 2 me1 Historical: - Allergies: 10:17 No Known Allergies; me1 - PMHx: 10:17 Anxiety; Hypertension; erectile dysfunction (Unknown); me1 - PSHx: 10:17 Operative procedure on knee; Cholecystectomy; rotator cuff surgery bilaterally; me1 - Immunization history:: Adult Immunizations up to date. - Infectious Disease History:: Denies. - Social history:: Smoking status: Patient reports use of chewing tobacco. - Family history:: not pertinent. Screenin:00 [facility] ED Fall Risk Assessment (Adult) History of falling in the last 3 months, hb including since admission No falls in past 3 months (0 pts) Confusion or Disorientation No (0 pts) Intoxicated or Sedated No (0 pts) Impaired Gait No (0 pts) Mobility Assist Device Used No (0 pt) Altered Elimination No (0 pt) Score/Fall Risk Level 0 - 2 = Low Risk Oriented to surroundings, Maintained a safe environment, Educated pt \\T\\ family on fall prevention, incl call for assistance when getting out of bed. Abuse screen: Denies threats or abuse. Denies injuries from another. Nutritional screening: No deficits noted. Tuberculosis screening: No symptoms or risk factors identified. Assessment: 11:00 General: Appears in no apparent distress. Behavior is calm, cooperative. hb 11:00 Pain: Denies pain. Neuro: Level of Consciousness is awake, alert, obeys commands, hb Oriented to person, place, time, situation. Cardiovascular: Patient's skin is warm and dry. Respiratory: Respiratory effort is even, unlabored, Respiratory pattern is regular, symmetrical. GI: No signs and/or symptoms were reported involving the gastrointestinal system. : No signs and/or symptoms were reported regarding the genitourinary system. EENT: No signs and/or symptoms were reported regarding the EENT system. Derm: Skin is pink, warm \\T\\ dry. Musculoskeletal: No signs and/or symptoms reported regarding the musculoskeletal system. 12:00 Reassessment: Patient appears in no apparent distress at this time. Patient and/or hb family updated on plan of care and expected duration. Pain level reassessed. Patient is alert, oriented x 3, equal unlabored respirations, skin warm/dry/pink. 12:15 Reassessment: Discharge pending completion of IV medication. hb Vital Signs: 10:13 BP 168 / 103; Pulse 71; Resp 18; Temp 98.3; Pulse Ox 99% ; Weight 98.88 kg; Height 6 me1 ft. 0 in. ; 12:10 BP 156 / 86; Pulse 68; Resp 16; Pulse Ox 99% on R/A; hb 10:13 Body Mass Index 29.57 (98.88 kg, 182.88 cm) mn1 ED Course: 10:01 Patient arrived in ED. cj3 10:01 Stan Sun MD is Attending Physician. evan 10:17 Triage completed. me1 10:17 Arm band placed on Patient placed in an exam room. me1 10:22 CT Head Brain wo Cont In Process Unspecified. EDMS 10:22 CT Head Angio In Process Unspecified. EDMS 10:22 CT Neck Angio In Process Unspecified. EDMS 10:53 Brain Wo Cont In Process Unspecified. EDMS 11:00 Patient has correct armband on for positive identification. Bed in low position. Call hb light in reach. Provided Education on: .. 11:11 XRAY Chest (1 view) In Process Unspecified. EDMS 11:41 Emily Li, RN is Primary Nurse. hb 12:30 Demetrius Jensen MD is Referral Physician. [facility] 12:32 Esteban Chow MD is Referral Physician. [facility] 12:32 Agustin Szymanski MD is Referral Physician. evan 12:58 No provider procedures requiring assistance completed. IV discontinued, intact, hb bleeding controlled, No redness/swelling at site. Pressure dressing applied. Administered Medications: 11:20 Drug: foLIC Acid IVPB 1 mg IVPB once Route: IVPB; Site: right antecubital; hb 11:20 Drug: NS 0.9% IV 1000 ml IV at 1000 ml once; to be given as a bolus over 60 minutes hb Route: IV; Rate: 1000 ml; Site: right antecubital; 12:01 Drug: Magnesium Sulfate IVPB 2 grams IVPB once over 2 hrs Route: IVPB; Infused Over: 2 hb hrs; Site: right antecubital; 12:01 Drug: Aspirin PO Chewable Tablet 324 mg PO once; 81 mg tablets x 4 Route: PO; hb Medication: 11:56 VIS not applicable for this client. hb Outcome: 12:31 Discharge ordered by MD. evan 12:58 Discharged to home ambulatory, hb 12:58 Condition: stable 12:58 Discharge instructions given to patient, Instructed on discharge instructions, follow up and referral plans. medication usage, Demonstrated understanding of instructions, follow-up care, medications, 12:58 Patient left the ED. hb Signatures: Dispatcher [employer] EDIL Stan Sun MD MD cha Baxter, Heather, RN RN Katie Last RN RN me1 Dianna Meredith cj3
--- NOTE | 2025-04-04 12:32 | EDPHYS ---
Physician Documentation [facility] Name: Luciano Negron Age: 65 yrs Sex: Male : 1960 Arrival Date: 04/04/2025 Time: 09:56 Bed 4 Private MD: DAFNE Physician Stan Sun HPI: 04/04 12:27 This 65 yrs old Male presents to ER via Ambulatory with complaints of SENT evan OVER BY MIKKISTACIANI. 12:28 The patient has experienced near-syncope, almost passed out, felt dizzy, felt faint. evan Onset: The symptoms/episode began/occurred 2 day(s) ago. Duration: This was a single episode, that lasted 20 second(s). The patient presents with dizziness, feeling faint, generalized weakness. Modifying factors: The symptoms are alleviated by lying down, the symptoms are aggravated by movement of head, standing up. Associated signs and symptoms: The patient has no apparent associated signs or symptoms. Severity of symptoms: At their worst the symptoms were mild moderate in the emergency department the symptoms are unchanged. Associated injury: The patient did not suffer any apparent associated injury. Historical: - Allergies: 10:17 No Known Allergies; me1 - PMHx: 10:17 Anxiety; Hypertension; erectile dysfunction (Unknown); me1 - PSHx: 10:17 Operative procedure on knee; Cholecystectomy; rotator cuff surgery bilaterally; me1 - Immunization history:: Adult Immunizations up to date. - Infectious Disease History:: Denies. - Social history:: Smoking status: Patient reports use of chewing tobacco. - Family history:: not pertinent. ROS: 12:28 Constitutional: Negative for fever, chills, and weight loss, Eyes: Negative for injury, evan pain, redness, and discharge, ENT: Negative for injury, pain, and discharge, Neck: Negative for injury, pain, and swelling, Cardiovascular: Negative for chest pain, palpitations, and edema, Respiratory: Negative for shortness of breath, cough, wheezing, and pleuritic chest pain, Abdomen/GI: Negative for abdominal pain, nausea, vomiting, diarrhea, and constipation, Back: Negative for injury and pain, : Negative for injury, bleeding, discharge, and swelling, MS/Extremity: Negative for injury and deformity, Skin: Negative for injury, rash, and discoloration, Psych: Negative for depression, anxiety, suicide ideation, homicidal ideation, and hallucinations, Allergy/Immunology: Negative for hives, rash, and allergies, Endocrine: Negative for neck swelling, polydipsia, polyuria, polyphagia, and marked weight changes, Hematologic/Lymphatic: Negative for swollen nodes, abnormal bleeding, and unusual bruising, 12:28 Neuro: Positive for near syncope, weakness, Exam: 12:28 Constitutional: This is a well developed, well nourished patient who is awake, alert, evan and in no acute distress. Head/Face: Normocephalic, atraumatic. Eyes: Pupils equal round and reactive to light, extra-ocular motions intact. Lids and lashes normal. Conjunctiva and sclera are non-icteric and not injected. Cornea within normal limits. Periorbital areas with no swelling, redness, or edema. ENT: Nares patent. No nasal discharge, no septal abnormalities noted. Tympanic membranes are normal and external auditory canals are clear. Oropharynx with no redness, swelling, or masses, exudates, or evidence of obstruction, uvula midline. Mucous membranes moist. Neck: Trachea midline, no thyromegaly or masses palpated, and no cervical lymphadenopathy. Supple, full range of motion without nuchal rigidity, or vertebral point tenderness. No Meningismus. Chest/axilla: Normal chest wall appearance and motion. Nontender with no deformity. No lesions are appreciated. Cardiovascular: Regular rate and rhythm with a normal S1 and S2. No gallops, murmurs, or rubs. Normal PMI, no JVD. No pulse deficits. Respiratory: Lungs have equal breath sounds bilaterally, clear to auscultation and percussion. No rales, rhonchi or wheezes noted. No increased work of breathing, no retractions or nasal flaring. Abdomen/GI: Soft, non-tender, with normal bowel sounds. No distension or tympany. No guarding or rebound. No evidence of tenderness throughout. Back: No spinal tenderness. No costovertebral tenderness. Full range of motion. Male : Normal genitalia with no discharge or lesions. Skin: Warm, dry with normal turgor. Normal color with no rashes, no lesions, and no evidence of cellulitis. MS/ Extremity: Pulses equal, no cyanosis. Neurovascular intact. Full, normal range of motion., bilateral aka Neuro: Awake and alert, GCS 15, oriented to person, place, time, and situation. Cranial nerves II-XII grossly intact. Motor strength 5/5 in all extremities. Sensory grossly intact. Cerebellar exam normal. Normal gait. Psych: Awake, alert, with orientation to person, place and time. Behavior, mood, and affect are within normal limits. 12:28 ECG was reviewed by the Attending Physician. Vital Signs: 10:13 BP 168 / 103; Pulse 71; Resp 18; Temp 98.3; Pulse Ox 99% ; Weight 98.88 kg; Height 6 me1 ft. 0 in. ; 12:10 BP 156 / 86; Pulse 68; Resp 16; Pulse Ox 99% on R/A; hb 10:13 Body Mass Index 29.57 (98.88 kg, 182.88 cm) me1 MDM: 10:02 Medical Screening Exam initiated [facility] 04/04 10:04 Order name: Basic Metabolic Panel; Complete Time: 11:15 [facility] 04/04 10:04 Order name: CBC with Diff; Complete Time: 11:15 [facility] 04/04 10:04 Order name: LFT's; Complete Time: 11:15 [facility] 04/04 10:04 Order name: Magnesium; Complete Time: 11:15 [facility] 04/04 10:04 Order name: NT PRO-BNP; Complete Time: 11:15 [facility] 04/04 10:04 Order name: PT-INR; Complete Time: 11:15 [facility] 04/04 10:04 Order name: Troponin HS; Complete Time: 11:15 [facility] 04/04 10:04 Order name: Lipid Profile; Complete Time: 11:15 [facility] 04/04 10:04 Order name: CRP; Complete Time: 11:15 [facility] 04/04 10:04 Order name: XRAY Chest (1 view); Complete Time: 12:25 [facility] 04/04 10:04 Order name: CT Head Brain wo Cont; Complete Time: 11:15 [facility] 04/04 10:04 Order name: CT Head Angio; Complete Time: 11:15 [facility] 04/04 10:04 Order name: CT Neck Angio; Complete Time: 11:15 [facility] 04/04 10:34 Order name: Brain Wo Cont; Complete Time: 11:15 [facility] 04/04 10:04 Order name: Cardiac monitoring; Complete Time: 10: [facility] 04/04 10:04 Order name: IV Saline Lock; Complete Time: 10: [facility] 04/04 10:04 Order name: Labs collected and sent; Complete Time: [facility] 04/04 10:04 Order name: O2 Per Protocol; Complete Time: [facility] 04/04 10:04 Order name: O2 Sat Monitoring; Complete Time: [facility] EC:28 Rate is 60 beats/min. Rhythm is regular. QRS [place] is Normal. [place] interval is normal. QRS evan interval is normal. QT interval is normal. No Q waves. T waves are Normal. No ST changes noted. Clinical impression: NSR w/ Non-specific ST/T Changes and No evidence of ischemia. Interpreted by me. Reviewed by me. Administered Medications: 11:20 Drug: foLIC Acid IVPB 1 mg IVPB once Route: IVPB; Site: right antecubital; hb 11:20 Drug: NS 0.9% IV 1000 ml IV at 1000 ml once; to be given as a bolus over 60 minutes hb Route: IV; Rate: 1000 ml; Site: right antecubital; 12:01 Drug: Magnesium Sulfate IVPB 2 grams IVPB once over 2 hrs Route: IVPB; Infused Over: 2 hb hrs; Site: right antecubital; 12:01 Drug: Aspirin PO Chewable Tablet 324 mg PO once; 81 mg tablets x 4 Route: PO; hb Disposition Summary: 04/04/25 12:31 Discharge Ordered Notes: Location: Home evan Problem: new evan Symptoms: have improved evan Condition: Stable evan Diagnosis - Syncope Near evan - Occlusion and stenosis of unspecified carotid artery - LESS THAN 50% evan - Essential (primary) hypertension evan - Hypomagnesemia evan Followup: evan - With: Demetrius Jensen MD - When: 2 - 3 days - Reason: Recheck today's complaints, Continuance of care, Re-evaluation by your physician Followup: evan - With: Esteban Chow MD - When: 2 - 3 days - Reason: Recheck today's complaints, Re-evaluation by your physician Followup: evan - With: Agustin Szymanski MD - When: 2 - 3 days - Reason: Recheck today's complaints, Re-evaluation by your physician Discharge Instructions: - Discharge Summary Sheet evan - Hypertension, Adult evan - Hypomagnesemia evan - Near-Syncope evan - Near-Syncope, [id number] evan - Hypertension, Adult, [id number] evan - How to Take Your Blood Pressure, [id number] evan - Aspirin and Your Heart eavn - Managing Your Hypertension evan - Carotid Artery Disease evan - Carotid Artery Disease, [id number] evan - How to Take Your Blood Pressure evan - Familial Hypercholesterolemia evan Forms: - Medication Reconciliation Form evan - Antibiotic Education evan - Prescription Opioid Use evan - Patient Portal Instructions evan - Leadership Thank You Letter evan Signatures: Dispatcher [employer] Stan Moss MD MD cha Baxter, Heather, RN RN Katie Last RN RN me1 Corrections: (The following items were deleted from the chart) 10:05 10:04 BASIC METABOLIC PANEL+C.LAB.BRZ ordered. EDMS EDMS 10:05 10:04 CBC+H.LAB.BRZ ordered. EDMS EDMS 10:05 10:04 HEPATIC FUNCTION+C.LAB.BRZ ordered. EDMS EDMS 10:05 10:04 MAGNESIUM+C.LAB.BRZ ordered. EDMS EDMS 10:05 10:04 PROBNP+C.LAB.BRZ ordered. EDMS EDMS 10:05 10:04 PROTIME (+INR)+COAG.LAB.BRZ ordered. EDMS EDMS 10:05 10:04 Troponin High Sensitivity+C.LAB.BRZ ordered. EDMS EDMS 10:05 10:04 UA Rfx Ferny Cult if indicated+U.LAB.BRZ ordered. EDMS EDMS 10:05 10:04 LIPID PROFILE+C.LAB.BRZ ordered. EDMS EDMS 10:05 10:04 C-REACTIVE PROTEIN+C.LAB.BRZ ordered. EDMS EDMS 10:05 10:05 Chest Single View+RAD.RAD.BRZ ordered. EDMS EDMS 10:05 10:05 Head Brain Wo Cont+CT.RAD.BRZ ordered. EDMS EDMS 10:05 10:05 Head Angio+CT.RAD.BRZ ordered. EDMS EDMS 10:05 10:05 Neck Angio+CT.RAD.BRZ ordered. EDMS EDMS 10:05 10:05 MR STROKE PROTOCOL+MRI.RAD.BRZ ordered. EDMS EDMS
[2025-04-04 13:03] VITALS: TEMP 98.3; O2SAT 99
[2025-04-04 13:05] VITALS: BP 156/86
== END 2025-04-04 12:58 | disposition home or self-care (01) ==
LOC: ER 09:56
DX: I65.23 Occlusion and stenosis of bilateral carotid arteries (principal); I10 Essential (primary) hypertension; E83.42 Hypomagnesemia; F17.220 Nicotine dependence, chewing tobacco, uncomplicated
CPT/HCPCS: 93005; 85025; 80048; 36415; 83735; 85610; 80061; 82565; 80076; 84484; 83880; 86140; 70450; 70496; 70498; 71045; 70551; 96375; 96374; 99284; Q9967; J3475; J7030